=== PATIENT | female | born 1940 | race Hispanic/Latino ===

== ENCOUNTER → 2016-11-05 | Outpatient (CLI) | payer MEDICARE ==
[~2016-11-05] MED LIST: AML5T PO; ASCO10006 PO; ASP81CT PO; ATOR20TA PO; CALC-939 PO; CEFD300C PO; IBP200T PO; MGX400T PO; NF-LISIN40 PO; OMEG300C3 PO; [UNRECOGNIZED DRUG - CODE] PO
--- NOTE | 2016-11-06 14:12 | Diagnostic Imaging Report ---
INDICATION: Screening mammogram. COMPARISON: 07/25/2015, 01/26/2013. FAMILY HISTORY: Negative. TECHNIQUE: Bilateral digital mammography was performed with computer assisted detection (CAD) software utilization. PERSONAL HISTORY: There are no reported clinical signs and/or symptoms of breast cancer. FINDINGS: The breast tissue pattern is composed mostly of fat. The tissue pattern does not show any significant changes when compared to the prior examinations. No dominant mass, suspicious microcalcification, or other significant abnormality is identified. IMPRESSION: Negative for malignancy. Followup mammography in one year is recommended. ACR BI-RADS Category 1: Negative Result letter will be mailed to the patient. Note: At least 10% of breast cancer is not imaged by mammography. Dictated by: Dictated on workstation # [id number]
== END ==
LOC: RAD 13:33
PROVIDERS: ATTEND Family Medicine
DX: Z12.31 Encounter for screening mammogram for malignant neoplasm of breast (principal)

== ENCOUNTER 2016-11-26 06:06 | Day surgery (SDC) | payer MEDICARE ==
[~2016-11-26] VITALS: Ht 157.5 cm; Wt 55.0 kg
--- OUTSIDE RECORDS SUMMARY | 2016-11-26 06:11 | XMS REPORT | Continuity of Care Document ---
Author Author [facility] Address Unknown Phone Unavailable Allergies Active Description Code Type Severity Reaction Onset Reported/Identified Relationship to Patient Clinical Status Yes No Known Drug Allergies [id number] Drug Allergy Unknown N/ A 05/24/2015 Medications Problems Date Dx Coded Attending Type Code Diagnosis Diagnosed By 05/24/2015 Ot 793.82 05/24/2015 Ot V76.12 05/24/2015 João JARRELL, Pool [place] Ot 793.82 05/28/2015 ROXANA JARRELL, SANDRA Evans Ot B96.20 UNSP ESCHERICHIA COLI THE CAUSE OF DI 05/28/2015 SANDRA SCHMIDT MD Ot E78.5 HYPERLIPIDEMIA, UNSPECIFIED 05/28/2015 SANDRA SCHMIDT MD Ot E86.0 DEHYDRATION 05/28/2015 SANDRA SCHMIDT MD Ot I10 ESSENTIAL (PRIMARY) HYPERTENSION 05/28/2015 SANDRA SCHMIDT MD Ot N39.0 URINARY TRACT INFECTION, SITE NOT SPECIF 05/28/2015 SANDRA SCHMIDT MD Ot R30.0 DYSURIA 05/28/2015 SANDRA SCHMIDT MD Ot R50.9 FEVER, UNSPECIFIED 06/03/2015 Ot 793.82 06/03/2015 Ot V76.12 06/03/2015 Pool Moyer MD Ot 793.82 06/03/2015 Pool Moyer MD Ot N39.0 06/14/2015 Pool Moyer MD Ot N39.0 07/25/2015 Ot 793.82 07/25/2015 Ot V76.12 07/25/2015 Pool Moyer MD Ot 793.82 07/25/2015 Pool Moyer MD, Ot N39.0 08/14/2015 Pool Moyer MD Ot Z12.31 11/05/2016 Pool Moyer MD, Ot Z12.31 ENCNTR SCREEN MAMMOGRAM FOR MALIGNANT NE 11/05/2016 Ot 793.82 INCONCLUSIVE MAMMOGRAM 11/05/2016 Ot V76.12 OTH SCREEN MAMMO-MALIGN NEOPLASM OF BENJI 11/05/2016 Pool Moyer MD Ot 793.82 INCONCLUSIVE MAMMOGRAM 11/05/2016 Pool Moyer MD Ot N39.0 URINARY TRACT INFECTION, SITE NOT SPECIF 11/05/2016 Pool Moyer MD, Ot Z12.31 ENCNTR SCREEN MAMMOGRAM FOR MALIGNANT NE 11/05/2016 Pool Moyer MD, Ot Z12.31 ENCNTR SCREEN MAMMOGRAM FOR MALIGNANT NE 11/10/2016 Pool Moyer MD, Ot Z12.31 ENCNTR SCREEN MAMMOGRAM FOR MALIGNANT NE 11/13/2016 Pool Moyer MD, Ot Z12.31 ENCNTR SCREEN MAMMOGRAM FOR MALIGNANT NE Procedures Results Encounters ACCT No. Visit Date/Time Discharge Status Pt. Type Provider Facility Loc./Unit Complaint [id number] 05/24/2015 12:03:00 2014 10:45:00 DIS Inpatient ROXANA JARRELL, [facility] MED/SURG UTI SIRS SEPSIS [id number] 05/24/2015 11:00:00 2014 23:59:59 CLS Outpatient João JARRELL [facility] LAB LAB DROP OFF [facility] [id number] 02/07/2013 12:38:00 2012 23:59:59 CLS Outpatient João JARRELL [facility] RAD LEFT BREAST DENSITY------EXTRA VIEWS [id number] 11/26/2016 06:06:00 ACT Outpatient THONY JARRELL, AN[facility] ASC COLONOSCOPY [id number] 11/05/2016 13:33:00 ACT Outpatient João JARRELL [facility] RAD Z12.31 SCREENING [id number] 07/25/2015 07:46:00 ACT Outpatient João JARRELL [facility] RAD SCREENING Z12.31 [id number] 01/26/2013 15:23:00 Document Registration
[2016-11-26 06:28] VITALS: BP 145/87
[2016-11-26] MEDS ORDERED: SOTA80TA PO (06:39)
[2016-11-26] MEDS: SODIUM CHLORIDE FLUSH 3 ML SYR IV PRN (06:48)
[2016-11-26] MEDS: LACTATED RINGERS 1,000 ML IV SCH (06:48)
[2016-11-26] MEDS ORDERED: MIDAZOLAM 2 MG/2 ML (VERSED) VIAL ONE (07:12)
[2016-11-26] MEDS ORDERED: PROPOFOL 20 ML IV ONE (07:13)
[2016-11-26] MEDS ORDERED: ALFENTANIL 500 MCG/ML (ALFENTA) 5 ML AMP IV ONE (07:13)
[2016-11-26 08:19] VITALS: BP 134/75
[2016-11-26 08:49] VITALS: BP 145/90
--- NOTE | 2016-11-26 08:58 | OPERATIVE REPORT ---
DATE OF OPERATION: 11/26/2016 PRE-OPERATIVE DIAGNOSIS: History Of colon polyps POST-OPERATIVE DIAGNOSIS: Pandiverticulosis OPERATIVE PROCEDURE: Total colonoscopy SURGEON: Roger Chau MD ANESTHESIA: Monitored anesthesia care FINDINGS: 1. The bowel prep was poor. There was liquid and some particulate matter in dependent areas of the colon that had to be irrigated or suctioned in order to see. Although the exam was considered adequate, it is conceivable in a view places very small polyps potentially could have been missed. 2. No neoplasia, angiodysplasia, or inflammation was seen. 3. There were numerous diverticula seen in the sigmoid colon and a few seen in the proximal colon as well. INDICATION: The patient is a 76-year-old referred by Dr. Moyer for colonoscopy screening. She underwent colonoscopy approximately [address] Geller, and due to a history of adenomatous polyps a 5-year surveillance has been recommended. She presents today for this procedure. DESCRIPTION OF PROCEDURE: The patient was informed of the risks and benefits and agreed to proceed. She was placed in the left lateral decubitus position and administered IV sedation. When properly sedated a rectal exam was performed, which was normal. The lighted endoscope was passed into the rectum and advanced along the colon to the cecum. The ileocecal valve and the appendiceal orifice were easily seen. The scope was slowly brought back through the ascending, transverse, descending, and sigmoid colon. Diverticula were noted, but no polyps. The rectum appeared normal on regular view and retroflexion. The scope was removed completing the procedure. The patient tolerated the procedure without complications.
--- NOTE | 2016-11-26 11:49 | PAIN MANAGEMENT ---
Date of note: 11/26/2016 Procedure: Peripheral IV placement This is a 76-year-old female patient who presents in the [facility] for colonoscopy today under the care of Dr. Chau. ASC was unable to obtain IV after multiple sticks. Anesthesia was consulted for placement of a peripheral IV. Aseptic technique utilized and a 22-gauge peripheral IV was placed in the patient's left AC x1 attempt. It was securely fashioned in place. It flushes easily. The patient tolerated the procedure well.
== END 2016-11-26 08:52 | disposition home or self-care (01) ==
LOC: ASC 06:06
PROVIDERS: ATTEND Surgery
DX: Z12.11 Encounter for screening for malignant neoplasm of colon (principal); Z86.010 Personal history of colon polyps; Z80.0 Family history of malignant neoplasm of digestive organs; I10 Essential (primary) hypertension; I44.0 Atrioventricular block, first degree; Z79.82 Long term (current) use of aspirin
CPT/HCPCS: 93005